=== PATIENT | female | born 1975 | race Caucasian/White ===

== ENCOUNTER 2017-12-29 17:32 | Emergency (ER) | payer OTHER, MEDICAID ==
[~2017-12-29] VITALS: Ht 162.6 cm; Wt 92.1 kg
[~2017-12-29 17:32] MED LIST: AMOX1TAB61 PO; IBUP200T49 PO; OXYC-302 PO; PREN1TAB56 PO
[2017-12-29 18:25] VITALS: BP 124/84
[2017-12-29] MEDS ORDERED: METHOCARBAMOL 750 MG TABLET ONE (19:57)
[2017-12-29] MEDS ORDERED: HYDROcodone/APAP 5/325 TABLET ONE (19:58)
[2017-12-29] MEDS ORDERED: METHOCARBAMOL 750 MG TABLET PO ONE (20:00)
[2017-12-29] MEDS ORDERED: HYDROcodone/APAP 5/325 TABLET PO ONE (20:00)
[2017-12-29 21:09] LABS: ALBUMIN 3.7 g/dL (3.4-5.0); ANION GAP 6 mmol/L (5-15); CALCIUM 8.9 mg/dL (8.5-10.1); CHLORIDE 106 mmol/L (98-107)
[2017-12-29 21:13] LABS: MICROSCOPIC NOT IND
[2017-12-29 21:20] LABS: CULTURE INDICATED? NO
== END 2017-12-29 21:42 | disposition home or self-care (01) ==
LOC: ED 21:30
DX: M54.6 Pain in thoracic spine (principal); M62.830 Muscle spasm of back; J45.909 Unspecified asthma, uncomplicated
CPT/HCPCS: 36415; 80048; 81003; 82040; 99284